=== PATIENT | female | born 1990 | race Caucasian/White ===

== ENCOUNTER 2020-03-20 10:29 | Emergency (ER) | payer OTHER ==
[~2020-03-20] VITALS: Ht 157.5 cm; Wt 47.2 kg
[2020-03-20] MEDS ORDERED: ACETAMINOPHEN650 M2 PO (14:29)
== END 2020-03-20 14:37 | disposition home or self-care (01) ==
LOC: ER 10:29
DX: O26.891 Other specified pregnancy related conditions, first trimester (principal); R10.31 Right lower quadrant pain; R10.2 Pelvic and perineal pain; Z03.818 Encounter for observation for suspected exposure to other biological agents ruled out; Z3A.01 Less than 8 weeks gestation of pregnancy